=== PATIENT | female | born 1965 | race Caucasian/White ===

== ENCOUNTER 2017-11-03 19:33 | Emergency (ER) | payer SELFPAY ==
--- NOTE | 2017-11-03 19:49 | NUR ---
INFORMED PT ISNT IN EITHER LOBBY OR OUTSIDE ER AFTER BEING CALLED X4. LWBT
== END 2017-11-03 19:51 | disposition left against medical advice (07) ==
LOC: ER 19:37
DX: Z53.21 Procedure and treatment not carried out due to patient leaving prior to being seen by health care provider (principal)